=== PATIENT | male | born 1995 | race Caucasian/White ===

== ENCOUNTER 2017-04-22 16:10 | Emergency (ER) | payer OTHER ==
[~2017-04-22] VITALS: Ht 190.5 cm; Wt 65.0 kg
[2017-04-22 16:21] VITALS: BP 146/91; PULSE 66; RESP 18; TEMP 98; O2SAT 100
--- NOTE | 2017-04-22 17:01 | PD ---
HPI Chief Complaint: Fall Time Seen by Provider: 16:17 Travel History International Travel<30 days: No Contact w/Intl Traveler<30days: No Traveled to known affect area: No History of Present Illness HPI 21-year-old male presents to the ED for evaluation of laceration of the forehead , sustained "somewhere between 3 and 6 AM." Patient states that he was drinking last night. He states that he must have fallen during that time. He is unsure if he lost consciousness. He states that he walked home this morning and took a nap. On presentation he complains of pain over the left eye, right eye pain with ocular motion, pain in the middle finger of the left hand and pain in the right great toe. Pain is constant, throbbing. No alleviating or exacerbating factors reported. He denies headache, dizziness, vision changes, shortness of breath, nausea, vomiting. He endorses one-week history of pain in the left groin with associated numbness down the anterior aspect of the leg. He denies weakness or limitations to range of motion of the extremity. He denies dysuria, hematuria, penile discharge, genital ulcers. He is unsure of the date of his last tetanus immunization. No treatment attempted prior to arrival. He states that he sought treatment at the [facility] and was referred to the ED. [facility] Past Medical History Influenza Vaccination: Yes Past Surgical History Neurologic Surgery: Yes (SPINAL SURGERY) Tonsillectomy: Yes Social History Alcohol Use: Yes Tobacco Use: No Substance Use: No Allergies-Medications (Allergen,Severity, Reaction): Coded Allergies: No Known Allergies (Unverified , 04/22/17) Reported Meds & Prescriptions Reported Meds & Active Scripts Active Ibuprofen 800 Mg Tab 800 Mg PO Q8H PRN Keflex (Cephalexin) 500 Mg Cap 500 Mg PO Q6H 7 Days Bactrim DS (Sulfamethoxazole-Trimethoprim) 800-160 Mg Tab 1 Tab PO BID Review of Systems Except as stated in HPI: all other systems reviewed are Neg Physical Exam Narrative GENERAL: Well-nourished, well-developed white male in no acute distress. Sitting up the stretcher. Alert, oriented. SKIN: Warm and dry. 6 laceration superior to the left eyebrow. Galea is visible. Thorough evaluation reveals no edema, ecchymosis, abrasion, or laceration of the skin. HEAD: Normocephalic. No raccoon eyes or boykin sign. No tenderness to palpation of the skull. Positive tenderness to palpation of the facial bones, right greater than left. Swelling of the right cheek. No loose teeth. No movement of the alveolar ridge.. No bony step-offs. No malocclusion of the teeth. EYES: No scleral icterus. No injection or drainage. PERRLA. EOMI. ENT: Pearly vazquez tympanic membrane is bilaterally. Nasal mucosa is moist. Oropharynx without erythema, edema or exudate. NECK: Supple, trachea midline. No JVD or lymphadenopathy. No midline tenderness to palpation. Patient retains full, active, painless range of motion of the neck. CARDIOVASCULAR: Regular rate and rhythm without murmurs, gallops, or rubs. 2+ DP and radial pulses bilaterally. RESPIRATORY: Breath sounds clear and equal bilaterally. No accessory muscle use. GASTROINTESTINAL: Abdomen soft, non-tender, nondistended. + Bowel sounds GENITOURINARY: Circumcised. Testes descended bilaterally without evidence of rotation. No lesions or erythema. No urethral discharge. Ropy induration in the left groin suspicious for LAD. MUSCULOSKELETAL: No cyanosis, or edema. Bruising and tenderness to palpation of the middle finger of the left hand. Bruising and tenderness to palpation of the right great toe. Otherwise no tenderness to palpation or limitations to range of motion of the joints of the upper and lower extremities bilaterally. NEUROLOGICAL: Awake and alert. Cranial nerves II through XII intact. Motor and sensory grossly within normal limits. 5/5 muscle strength in all muscle groups. Normal speech. BACK: Nontender without obvious deformity. No CVA tenderness. No midline tenderness. Data Data Last Documented VS Vital Signs Date Time Temp Pulse Resp B/P (MAP) Pulse Ox O2 Delivery O2 Flow Rate FiO2 04/22/17 19:58 04/22/17 19:43 87 16 97 Room Air 04/22/17 16:21 98.0 Orders Orders Hand, Complete ([id number]) (04/22/17 16:36) Toe (Min 2vws) (04/22/17 16:36) Ct Facial Bones W/O Iv Cont (04/22/17 16:36) Tetanus/Diphtheria Tox Adult (Tetanus/Di (04/22/17 17:15) Lidocaine 1% Inj (50 Ml) (Xylocaine 1% I (04/22/17 17:15) Ibuprofen (Motrin) (04/22/17 17:15) Sulfamet-Trimeth Ds 800-160 Mg (Bactrim (04/22/17 19:00) Cephalexin (Keflex) (04/22/17 19:00) Ed Discharge Order (04/22/17 19:40) MDM Medical Decision Making Medical Screen Exam Complete: Yes Emergency Medical Condition: Yes Differential Diagnosis Laceration versus contusion versus facial fracture versus finger fracture versus patellar fracture versus date for tetanus immunization versus other Narrative Course 21-year-old male presents to the ED for evaluation of laceration of the forehead , sustained "somewhere between 3 and 6 AM." Patient states that he fell after drinking. Unsure if he lost consciousness. He walked home this morning and took a nap. On presentation he complains of pain over the left eye, right eye pain with ocular motion, pain in the middle finger of the left hand and pain in the right great toe. Complains of one-week history of pain in the left groin with associated numbness down the anterior aspect of the leg. He is unsure of the date of his last tetanus immunization. Patient is hypertensive on arrival. Physical exam reveals an alert white male in no acute distress. He has some swelling over the right side of his face and tenderness of the orbital bones. There is a 6 cm laceration above the left eyebrow. He also has some bruising and tenderness of the middle finger of the left hand in the great toe on the right foot. There is ropey induration in the left groin but the exam is otherwise unremarkable. Patient was administered Tylenol by mouth. Tetanus immunization was updated. Laceration repair was performed. Please see my procedure note for details. X-rays of the left hand and right foot unremarkable for bony injury. CT of the facial bones reveals multiple facial fractures including the right zygoma and maxilla. I discussed the case with Dr. Caballero, on-call maxillofacial surgeon, who recommends by mouth antibiotics and outpatient follow-up in the office early next week. I discussed this plan with the patient was agreeable. Patient is prescribed Bactrim, Keflex, ibuprofen. First doses were administered here in the ED. He was given detailed wound care instructions, instructed to follow up as discussed. We discussed reasons to return to the ED. He indicated understanding of the instructions and is agreeable to the care plan. The patient is stable and discharged home. Procedures Procedure Narrative LACERATION LOCATION: Above the left eyebrow LENGTH: 6 cm NUMBER OF STITCHES/ARLIN:2 deep, 9 superficial REPAIR: The area of the laceration was prepped with Betadine and sterilely draped. The laceration was infiltrated with 1% lidocaine. The wound was copiously irrigated and explored without evidence of foreign body, tendon injury or neurovascular injury. The wound was closed using 3-0 Vicryl and 4-0 Prolene. This was a 2 layer repair. A sterile dressing was applied. The patient was advised to keep the dressing clean and dry. Patient tolerated the procedure well. Diagnosis Primary Impression: Facial laceration Qualified Codes: S01.81XA - Laceration without foreign body of other part of head, initial encounter Additional Impressions: Contusion of middle finger Qualified Codes: S60.032A - Contusion of left middle finger without damage to nail, initial encounter Contusion of great toe of right foot Qualified Codes: S90.111A - Contusion of right great toe without damage to nail, initial encounter Inguinal lymphadenopathy Zygomatic fracture, right side, initial encounter for closed fracture Maxillary fracture Qualified Codes: S02.40CA - Maxillary fracture, right side, initial encounter for closed fracture Referrals: Ivan Tamez MD [facility] Patient Instructions: Care For Your Stitches (ED), Contusion in Adults (DC), General Instructions, Lymphadenopathy (ED) Additional Instructions: Rest, hydrate. Return to normal, gentle activity as tolerated. You may shower normally. Do not submerge your wound. (No swimming) Keep sutures clean, dry and covered. You may apply a thin layer of antibiotic ointment once a day if desired. Suture removal in 7-10 days. Continue to take antibiotics until every pill is gone. Follow up with Dr. Tamez tomorrow as discussed. Follow-up with the [facility]. Return to the ED for any urgent or emergent medical condition. Med/Other Pt SpecificInfo: Prescription(s) given Scripts Ibuprofen (Ibuprofen) 800 Mg Tab 800 MG PO Q8H Y for Pain/Inflammation, #15 TAB 0 Refills Prov: Geoffrey Mujica MD 04/22/17 Cephalexin (Keflex) 500 Mg Cap 500 MG PO Q6H for Infection for 7 Days, #28 CAP 0 Refills Prov: Geoffrey Mujica MD 04/22/17 Sulfamethoxazole-Trimethoprim (Bactrim DS) 800-160 Mg Tab 1 TAB PO BID for Infection, #14 TAB 0 Refills Prov: Geoffrey Mujica MD 04/22/17 Disposition: 01 DISCHARGE HOME Condition: Stable Chastity Fairchild Apr 22, 2017 17:01
[2017-04-22] MEDS ORDERED: TETANUS/DIPHTHERIA TOXOID ADULT 0.5 ML VIAL IM ONE (17:15)
[2017-04-22] MEDS ORDERED: IBUPROFEN 800 MG TAB PO ONE (17:15)
[2017-04-22] MEDS ORDERED: LIDOCAINE HCL 1% 50 ML VIAL INFIL ONE (17:15)
--- NOTE | 2017-04-22 17:24 | RADRPT ---
EXAM DATE/TIME: 04/22/2017 16:55 [facility] COMPARISON: No previous studies available for comparison. INDICATIONS : Left hand pain. 3rd and 4th digit swelling and bruising. Patient fell today. MEDICAL HISTORY : None. SURGICAL HISTORY : None. ENCOUNTER: Initial ACUITY: 2 days PAIN SCORE: 4/10 LOCATION: Left hand. FINDINGS: Three view examination of the left hand demonstrates no dislocation or fracture. Diffuse soft tissue swelling primarily about the proximal third and to a lesser extent fourth digits. The carpal bones ap pear intact. The interphalangeal and metacarpophalangeal joints are intact. Bony mineralization is normal. CONCLUSION: 1. No acute fracture or dislocation. 2. Mild soft tissue swelling primarily about the proximal third and to a lesser extent fourth digits. No radiopaque foreign bodies. Papito Olivares MD on April 22, 2017 at 17:22 Board Certified Radiologist. This report was verified electronically.
--- NOTE | 2017-04-22 17:27 | RADRPT ---
EXAM DATE/TIME: 04/22/2017 16:57 [facility] COMPARISON: No previous studies available for comparison. INDICATIONS : Left great toe swelling and bruising. Patient fell last night. MEDICAL HISTORY : None. SURGICAL HISTORY : None. ENCOUNTER: Initial ACUITY: 2 days PAIN SCORE: 5/10 LOCATION: Right great toe. FINDINGS: Examination of the first digit of the right foot demonstrates hallux no deformity of the first ray. C ortical margins are all intact with no acute fracture. CONCLUSION: 1. Hallux valgus deformity of the first ray. 2. No fracture. Snajay Kent MD on April 22, 2017 at 17:23 Board Certified Radiologist. This report was verified electronically.
[2017-04-22] MEDS ORDERED: IBUP1TAB7 PO (18:50)
[2017-04-22] MEDS ORDERED: BACT800T5 PO (18:50)
[2017-04-22] MEDS ORDERED: CEPH-460 PO (18:50)
--- NOTE | 2017-04-22 18:56 | RADRPT ---
EXAM DATE/TIME: 04/22/2017 18:19 [facility] COMPARISON: No previous studies available for comparison. INDICATIONS : Facial pain due to fall, cut on left upper orbit region. RADIATION DOSE: 33.69 CTDIvol (mGy) MEDICAL HISTORY : None SURGICAL HISTORY : Tonsillectomy. ENCOUNTER: Initial ACUITY: 2 days PAIN SCORE: 2/10 LOCATION: Left upper orbit region. TECHNIQUE: Volumetric scanning of the facial bones was performed. Using automated exposure control and adjustme nt of the mA and/or kV according to patient size, radiation dose was kept as low as reasonably achiev able to obtain optimal diagnostic quality images. DICOM format image data is available electronicall y for review and comparison. FINDINGS: ORBITS: The orbital and infraorbital osseous structures are intact. The retroconal structures have a normal configuration. No radiopaque foreign bodies are seen. NASAL BONE: The nasal bone and maxillary spine are intact ZYGOMATIC ARCHES: Slightly comminuted fracture of the right zygoma. SINUSES: There are slightly depressed fractures of the right anterio and lateral maxillary sewell as well as a subtle fracture of the medial maxillary wall with fluid noted in the right maxillary sinus. The anter ior fracture plane extends to the inferior orbital wall. Left maxillary sinus, ethmoid air cells and sphenoid sinuses are well-aerated and clear. Frontal sinuses are clear. NASAL CAVITY: The nasal septum is intact and midline. The lacrimal ducts are intact. SOFT TISSUES: Small left superior frontal periorbital soft tissue hematoma/laceration. No radiopaque foreign bodies . INTRACRANIAL: No intracranial air seen. CRIBIFORM PLATE: Grossly intact. CONCLUSION: 1. Slightly comminuted fracture the right zygoma. 2. Slightly depressed right anterior and lateral maxillary wall fractures with more subtle fracture o f the medial maxillary wall. Anterior fracture plane extends to the infraorbital wall. No evidence fo r ocular muscle entrapment or significant herniation. Right globe is grossly intact. Papito Olivares MD on April 22, 2017 at 18:39 Board Certified Radiologist. This report was verified electronically.
[2017-04-22] MEDS ORDERED: CEPHALEXIN MONOHYDRATE 500 MG CAP PO ONE (19:00)
[2017-04-22] MEDS ORDERED: SULFAMETHOXAZOLE-TRIMETHOPRIM DS 800-160 MG TAB PO ONE (19:00)
[2017-04-22 19:43] VITALS: BP 121/70; PULSE 87; RESP 16; O2SAT 97
== END 2017-04-22 20:08 | disposition home or self-care (01) ==
LOC: NEPC 16:10
DX: S02.40CA Maxillary fracture, right side, initial encounter for closed fracture (principal); S02.40EA Zygomatic fracture, right side, initial encounter for closed fracture; S01.81XA Laceration without foreign body of other part of head, initial encounter; S60.032A Contusion of left middle finger without damage to nail, initial encounter; S90.111A Contusion of right great toe without damage to nail, initial encounter; W19.XXXA Unspecified fall, initial encounter; Z23 Encounter for immunization
CPT/HCPCS: 12053; 70486; 73130; 73660; 90471; 90714

== ENCOUNTER 2017-08-26 16:32 | Observation (INO) | payer OTHER ==
[~2017-08-26] VITALS: Ht 190.5 cm; Wt 64.9 kg
[~2017-08-26 16:32] MED LIST: BACT800T5 PO; CEPH-460 PO; IBUP1TAB7 PO
[2017-08-26 16:39] VITALS: BP 141/79; PULSE 110; RESP 15; TEMP 98.2; O2SAT 100
[2017-08-26 16:45] VITALS: BP 141/79; PULSE 88; RESP 15; TEMP 98.2; O2SAT 100
[2017-08-26] MEDS ORDERED: ONDANSETRON HCL 4 MG/2 ML VIAL IV PUSH ONE (16:45)
[2017-08-26] MEDS ORDERED: SODIUM CHLOR 0.9% 1000 ML INJ 1,000 ML IV ONE (16:45)
--- NOTE | 2017-08-26 17:59 | PD ---
HPI Chief Complaint: Syncope/Near-Syncope Time Seen by Provider: 16:54 Travel History International Travel<30 days: No Contact w/Intl Traveler<30days: No Traveled to known affect area: No History of Present Illness HPI 21-year-old male states he has been feeling generally ill and having nonbloody emesis. He states he feels lightheaded when he stands up. He denies any other concurrent complaints. Triage staff states his heart was elevated in triage but in the room is now normal in sinus rhythm. Patient denies specific other modifying factors. Quality is generally ill. Severity is all over. He denies recurrent history of this. [facility] Past Medical History Medical History: Denies Significant Hx Diminished Hearing: No Past Surgical History Neurologic Surgery: Yes (SPINAL SURGERY/RODS PLACED) Tonsillectomy: Yes Social History Alcohol Use: Yes Tobacco Use: No Substance Use: No Allergies-Medications (Allergen,Severity, Reaction): Coded Allergies: No Known Allergies (Unverified , 08/26/17) Reported Meds & Prescriptions Reported Meds & Active Scripts Active Review of Systems Except as stated in HPI: all other systems reviewed are Neg Physical Exam Narrative GENERAL: 21-year-old male in no apparent distress SKIN: Focused skin assessment warm/dry. HEAD: Atraumatic. Normocephalic. EYES: Pupils equal and round. No scleral icterus. No injection or drainage. ENT: No nasal bleeding or discharge. Mucous membranes pink and moist. NECK: Trachea midline. No JVD. CARDIOVASCULAR: Regular rate and rhythm. RESPIRATORY: No accessory muscle use. Clear to auscultation. Breath sounds equal bilaterally. GASTROINTESTINAL: Abdomen soft, non-tender, nondistended. Hepatic and splenic margins not palpable. MUSCULOSKELETAL: No obvious deformities. No clubbing. No cyanosis. NEUROLOGICAL: Awake and alert. No obvious cranial nerve deficits. Motor grossly within normal limits. Normal speech. PSYCHIATRIC: Appropriate mood and affect; insight and judgment normal. Data Data Last Documented VS Vital Signs Date Time Temp Pulse Resp B/P (MAP) Pulse Ox O2 Delivery O2 Flow Rate FiO2 08/26/17 18:36 101 18 120/66 (84) 100 Room Air 08/26/17 16:45 98.2 Orders Orders Magnesium (Mg) (08/26/17 16:42) Phosphorus (Po4) (08/26/17 16:42) Complete Blood Count With Diff (08/26/17 16:42) Comprehensive Metabolic Panel (08/26/17 16:42) Iv Access Insert/Monitor (08/26/17 16:42) Ecg Monitoring (08/26/17 16:42) Oximetry (08/26/17 16:42) Sodium Chlor 0.9% 1000 Ml Inj (Ns 1000 M (08/26/17 16:45) Ondansetron Inj (Zofran Inj) (08/26/17 16:45) Drug Screen, Random Urine (08/26/17 16:42) Electrocardiogram (08/26/17 ) Red Blood Cells (Rbc) (08/26/17 18:29) Type And Screen (08/26/17 18:29) Pantoprazole Inj (Protonix Inj) (08/26/17 18:45) Admit Order (Ed Use Only) (08/26/17 19:17) Labs Laboratory Tests Test 08/26/17 16:55 08/26/17 18:30 White Blood Count 7.9 TH/MM3 Red Blood Count 2.49 MIL/MM3 Hemoglobin 8.4 GM/DL Hematocrit 23.4 % Mean Corpuscular Volume 93.9 FL Mean Corpuscular Hemoglobin 33.8 PG Mean Corpuscular Hemoglobin Concent 36.0 % Red Cell Distribution Width 12.7 % Platelet Count 239 TH/MM3 Mean Platelet Volume 8.9 FL Neutrophils (%) (Auto) 60.0 % Lymphocytes (%) (Auto) 31.7 % Monocytes (%) (Auto) 6.6 % Eosinophils (%) (Auto) 0.8 % Basophils (%) (Auto) 0.9 % Neutrophils # (Auto) 4.7 TH/MM3 Lymphocytes # (Auto) 2.5 TH/MM3 Monocytes # (Auto) 0.5 TH/MM3 Eosinophils # (Auto) 0.1 TH/MM3 Basophils # (Auto) 0.1 TH/MM3 CBC Comment AUTO DIFF Differential Comment AUTO DIFF CONFIRMED Blood Urea Nitrogen 27 MG/DL Creatinine 0.87 MG/DL Random Glucose 101 MG/DL Total Protein 6.0 GM/DL Albumin 3.8 GM/DL Calcium Level 8.7 MG/DL Phosphorus Level 2.6 MG/DL Magnesium Level 1.8 MG/DL Alkaline Phosphatase 50 U/L Aspartate Amino Transf (AST/SGOT) 29 U/L Alanine Aminotransferase (ALT/SGPT) 19 U/L Total Bilirubin 0.5 MG/DL Sodium Level 136 MEQ/L Potassium Level 3.7 MEQ/L Chloride Level 102 MEQ/L Carbon Dioxide Level 24.5 MEQ/L Anion Gap 10 MEQ/L Estimat Glomerular Filtration Rate 109 ML/MIN Urine Opiates Screen NEG Urine Barbiturates Screen NEG Urine Amphetamines Screen NEG Urine Benzodiazepines Screen NEG Urine Cocaine Screen NEG Urine Cannabinoids Screen NEG MDM Medical Decision Making Medical Screen Exam Complete: Yes Emergency Medical Condition: Yes Medical Record Reviewed: Yes (pmh confirmed) Interpretation(s) CBC & BMP Diagram 08/26/17 16:55 Total Protein 6.0 L, Albumin 3.8, Calcium Level 8.7, Phosphorus Level 2.6, Magnesium Level 1.8, Alkaline Phosphatase 50, Aspartate Amino Transf (AST/SGOT) 29, Alanine Aminotransferase (ALT/SGPT) 19, Total Bilirubin 0.5 Differential Diagnosis Electrolyte abnormality, gastroenteritis, dehydration, renal failure Narrative Course We will check blood work and dose with IV fluids and reevaluate. lab show anemia of 8. Patient notes black stools on review of systems. Patient refused rectal exam but is likely source of bleeding. He agrees to observation for further care. Given Protonix Physician Communication Physician Communication dr gonzales agrees to admit Diagnosis Primary Impression: Anemia Qualified Codes: D64.9 - Anemia, unspecified Additional Impression: Black stools Admitting Information Admitting Physician Requests: Observation Keily Holcomb MD August 26, 2017 17:59
[2017-08-26 18:04] LABS: AUTOMATED NEUTROPHIL # 4.7 TH/MM3 (1.8-7.7); BASOPHIL # 0.1 TH/MM3 (0-0.2); BASOPHIL % 0.9 % (0.0-2.0); EOSINOPHIL # 0.1 TH/MM3 (0-0.4); EOSINOPHIL % 0.8 % (0.0-4.0); HEMATOCRIT 23.4 % (39.0-51.0); HEMOGLOBIN 8.4 GM/DL (13.0-17.0); LYMPH % 31.7 % (9.0-44.0); LYMPHOCYTE # 2.5 TH/MM3 (1.0-4.8); MEAN CELL VOLUME 93.9 FL (80.0-100.0); MEAN CORPUSCULAR HEMOGLOBIN 33.8 PG (27.0-34.0); MEAN PLATELET VOLUME 8.9 FL (7.0-11.0); MONO % 6.6 % (0.0-8.0); MONOCYTE # 0.5 TH/MM3 (0-0.9); PLATELET COUNT 239 TH/MM3 (150-450); RED BLOOD COUNT 2.49 MIL/MM3 (4.50-5.90); RED CELL DISTRIBUTION WIDTH 12.7 % (11.6-17.2); WHITE BLOOD COUNT 7.9 TH/MM3 (4.0-11.0)
[2017-08-26 18:19] LABS: ALBUMIN 3.8 GM/DL (3.4-5.0); AST (GOT) 29 U/L (15-37); BICARBONATE 24.5 MEQ/L (21.0-32.0); BLOOD UREA NITROGEN 27 MG/DL (7-18); CALCIUM 8.7 MG/DL (8.5-10.1); CHLORIDE 102 MEQ/L (98-107); CREATININE 0.87 MG/DL (0.60-1.30); GLOMERULAR FILTRATION RATE 109 ML/MIN (>89); GLUCOSE,RANDOM 101 MG/DL (74-106); MAGNESIUM 1.8 MG/DL (1.5-2.5); SODIUM (NA) 136 MEQ/L (136-145)
[2017-08-26 18:21] LABS: ALT (GPT) 19 U/L (12-78); PHOSPHORUS 2.6 MG/DL (2.5-4.9)
[2017-08-26 18:23] LABS: ALKALINE PHOSPHATASE 50 U/L (45-117); TOTAL BILIRUBIN ADULT 0.5 MG/DL (0.2-1.0)
[2017-08-26 18:36] VITALS: BP 120/66; PULSE 101; RESP 18; O2SAT 100
[2017-08-26] MEDS ORDERED: PANTOPRAZOLE SODIUM 40 MG VIAL IV PUSH ONE (18:45)
[2017-08-26] MEDS ORDERED: ONDANSETRON HCL 4 MG/2 ML VIAL IV PUSH PRN (20:30)
[2017-08-26] MEDS ORDERED: SODIUM CHLORIDE 0.9% FLUSH 10 ML FLUSH IV FLUSH PRN (20:30)
[2017-08-26] MEDS: SODIUM CHLORIDE 0.9% FLUSH 10 ML FLUSH IV FLUSH SCH (20:51)
[2017-08-26] MEDS: SODIUM CHLOR 0.9% 1000 ML INJ 1,000 ML IV SCH (20:55)
[2017-08-26 21:24] VITALS: BP 125/81; PULSE 88; RESP 16; TEMP 98.6; O2SAT 100
--- NOTE | 2017-08-26 22:02 | HHI.HP ---
[facility] Unknown Admission Diagnosis anemia, black stools Diagnoses: Travel History International Travel<30 Days: No Contact w/Intl Traveler <30 Da: No Traveled to Known Affected Are: No History of Present Illness 21-year-old male presents to the emergency department for the evaluation of generalized malaise and nonbloody emesis. He complains of lightheadedness upon standing/walking. He was tachycardic on his arrival. Anemia and Hemoccult- positive in the emergency department. He denies any abdominal pain. Positive nausea. No diarrhea. Positive black stools. No fevers/chills. No chest pain or shortness of breath. No lateralizing signs/symptoms. Review of Systems Except as stated in HPI: all other systems reviewed are Neg Past Family Social History Past Medical History Depression Past Surgical History Tonsillectomy Back surgery Reported Medications Reported Meds & Active Scripts Active Allergies: Coded Allergies: No Known Allergies (Unverified , 08/26/17) Family History Negative for CAD/DM Social History Occasional alcohol. Negative for tobacco, illegal drugs. Physical Exam Vital Signs Vital Signs Date Time Temp Pulse Resp B/P (MAP) Pulse Ox O2 Delivery O2 Flow Rate FiO2 08/26/17 21:24 98.6 88 16 125/81 (96) 100 08/26/17 18:36 101 18 120/66 (84) 100 Room Air 08/26/17 16:45 98.2 88 15 141/79 (99) 100 Room Air 08/26/17 16:43 100 Room Air 08/26/17 16:39 98.2 110 15 141/79 (99) 100 Physical Exam GENERAL: Thin, male lying in bed SKIN: No rashes, ecchymoses or lesions. Cool and dry. HEAD: Atraumatic. Normocephalic. No temporal or scalp tenderness. EYES: Pupils equal round and reactive. Extraocular motions intact. No scleral icterus. No injection or drainage. ENT: Nose without bleeding, purulent drainage or septal hematoma. Throat without erythema, tonsillar hypertrophy or exudate. Uvula midline. Airway patent. NECK: Trachea midline. No JVD or lymphadenopathy. Supple, nontender, no meningeal signs. CARDIOVASCULAR: Regular rate and rhythm without murmurs, gallops, or rubs. RESPIRATORY: Clear to auscultation. Breath sounds equal bilaterally. No wheezes , rales, or rhonchi. GASTROINTESTINAL: Abdomen soft, non-tender, nondistended. No hepato-splenomegaly , or palpable masses. No guarding. Rectal: Rectal vault positive for dark stools. Hemoccult positive. MUSCULOSKELETAL: Extremities without clubbing, cyanosis, or edema. No joint tenderness, effusion, or edema noted. No calf tenderness. NEUROLOGICAL: Awake and alert. Cranial nerves II through XII intact. Motor and sensory grossly within normal limits. Normal speech. Laboratory Laboratory Tests Test 08/26/17 16:55 08/26/17 18:30 White Blood Count 7.9 Red Blood Count 2.49 Hemoglobin 8.4 Hematocrit 23.4 Mean Corpuscular Volume 93.9 Mean Corpuscular Hemoglobin 33.8 Mean Corpuscular Hemoglobin Concent 36.0 Red Cell Distribution Width 12.7 Platelet Count 239 Mean Platelet Volume 8.9 Neutrophils (%) (Auto) 60.0 Lymphocytes (%) (Auto) 31.7 Monocytes (%) (Auto) 6.6 Eosinophils (%) (Auto) 0.8 Basophils (%) (Auto) 0.9 Neutrophils # (Auto) 4.7 Lymphocytes # (Auto) 2.5 Monocytes # (Auto) 0.5 Eosinophils # (Auto) 0.1 Basophils # (Auto) 0.1 CBC Comment AUTO DIFF Differential Comment AUTO DIFF CONFIRMED Blood Urea Nitrogen 27 Creatinine 0.87 Random Glucose 101 Total Protein 6.0 Albumin 3.8 Calcium Level 8.7 Phosphorus Level 2.6 Magnesium Level 1.8 Alkaline Phosphatase 50 Aspartate Amino Transf (AST/SGOT) 29 Alanine Aminotransferase (ALT/SGPT) 19 Total Bilirubin 0.5 Sodium Level 136 Potassium Level 3.7 Chloride Level 102 Carbon Dioxide Level 24.5 Anion Gap 10 Estimat Glomerular Filtration Rate 109 Urine Opiates Screen NEG Urine Barbiturates Screen NEG Urine Amphetamines Screen NEG Urine Benzodiazepines Screen NEG Urine Cocaine Screen NEG Urine Cannabinoids Screen NEG Result Diagram: 08/26/17 1655 08/26/171654 Caprini VTE Risk Assessment Caprini VTE Risk Assessment: No/Low Risk (score <= 1) Caprini Risk Assessment Model Point Value = 1 Point Value = 2 Point Value = 3 Point Value = 5 Age 41-60 Minor surgery BMI > 25 kg/m2 Swollen legs Varicose veins or History of unexplained or recurrent spontaneous Oral contraceptives or hormone replacement Sepsis (< 1 month) Serious lung disease, including pneumonia (< 1 month) Abnormal pulmonary function Acute myocardial infarction Congestive heart failure (< 1 month) History of inflammatory bowel disease Medical patient at bed rest Age 61-74 Arthroscopic surgery Major open surgery (> 45 min) Laparoscopic surgery (> 45 min) Malignancy Confined to bed (> 72 hours) Immobilizing plaster cast Central venous access Age >= 75 History of VTE Family history of VTE Factor V Leiden Prothrombin [id number] Lupus anticoagulant Anticardiolipin antibodies Elevated serum homocysteine Heparin-induced thrombocytopenia Other congenital or acquired thrombophilia Stroke (< 1 month) Elective arthroplasty Hip, pelvis, or leg fracture Acute spinal cord injury (< 1 month) Prophylaxis Regimen Total Risk Factor Score Risk Level Prophylaxis Regimen 0-1 Low Early ambulation 2 Moderate Order ONE of the following: *Sequential Compression Device (SCD) *Heparin 5000 units SQ BID 3-4 Higher Order ONE of the following medications: *Heparin 5000 units SQ TID *Enoxaparin/Lovenox 40 mg SQ daily (WT < 150 kg, CrCl > 30 mL/min) *Enoxaparin/Lovenox 30 mg SQ daily (WT < 150 kg, CrCl > 10-29 mL/min) *Enoxaparin/Lovenox 30 mg SQ BID (WT < 150 kg, CrCl > 30 mL/min) AND/OR *Sequential Compression Device (SCD) 5 or more Highest Order ONE of the following medications: *Heparin 5000 units SQ TID (Preferred with Epidurals) *Enoxaparin/Lovenox 40 mg SQ daily (WT < 150 kg, CrCl > 30 mL/min) *Enoxaparin/Lovenox 30 mg SQ daily (WT < 150 kg, CrCl > 10-29 mL/min) *Enoxaparin/Lovenox 30 mg SQ BID (WT < 150 kg, CrCl > 30 mL/min) AND *Sequential Compression Device (SCD) Assessment and Plan Assessment and Plan Assessment/plan: 1. Lower GI bleed/symptomatic anemia Hemoccult positive with dark stools H&H 8.4/23.4 Gastroenterology consulted, appreciate assistance Serial H&H Transfuse as needed Type and screen Protonix IV 2. Depression Continue home medications once reconciled FEN N.p.o. NS at 70 cc/hour Electrolytes: Monitor and replete as needed Jeri Aquino MD August 26, 2017 22:02
[2017-08-26 23:09] LABS: HEMOGLOBIN 7.1 GM/DL (13.0-17.0)
[2017-08-26 23:14] LABS: HEMATOCRIT 19.5 % (39.0-51.0)
[2017-08-27] VITALS (8 sets, daily range): BP systolic 107–148; BP diastolic 56–78; PULSE 71–86; RESP 16–18; TEMP 97.6–98.8; O2SAT 98–100
[2017-08-27] MEDS ORDERED: SODIUM CHLOR 0.9% 250 ML INJ 250 ML IV ONE (00:15)
[2017-08-27 04:15] LABS: AUTOMATED NEUTROPHIL # 2.2 TH/MM3 (1.8-7.7); BASOPHIL % 1.2 % (0.0-2.0); EOSINOPHIL # 0.1 TH/MM3 (0-0.4); EOSINOPHIL % 2.4 % (0.0-4.0); HEMOGLOBIN 7.5 GM/DL (13.0-17.0); LYMPH % 35.4 % (9.0-44.0); LYMPHOCYTE # 1.4 TH/MM3 (1.0-4.8); MEAN CELL VOLUME 87.9 FL (80.0-100.0); MEAN CORPUSCULAR HEMOGLOBIN 31.5 PG (27.0-34.0); MEAN CORPUSCULAR HGB CONC 35.8 % (32.0-36.0); MEAN PLATELET VOLUME 7.9 FL (7.0-11.0); MONO % 6.7 % (0.0-8.0); MONOCYTE # 0.3 TH/MM3 (0-0.9); NEUT % 54.3 % (16.0-70.0); PLATELET COUNT 165 TH/MM3 (150-450); RED BLOOD COUNT 2.39 MIL/MM3 (4.50-5.90); RED CELL DISTRIBUTION WIDTH 18.8 % (11.6-17.2)
[2017-08-27 04:46] LABS: BICARBONATE 26.1 MEQ/L (21.0-32.0); CALCIUM 8.1 MG/DL (8.5-10.1); CREATININE 0.8 MG/DL (0.60-1.30)
[2017-08-27] MEDS ORDERED: PANTOPRAZOLE SODIUM 40 MG VIAL IV PUSH SCH (06:00)
[2017-08-27] MEDS ORDERED: LACTATED RINGER'S 1000 ML IV PRN (07:45)
[2017-08-27] MEDS ORDERED: POVIDONE IODINE 5% (ANTISEPSIS KIT) 4 APPLICATIONS EACH NARE PRN (07:45)
[2017-08-27] MEDS ORDERED: METOPROLOL TARTRATE 25 MG TAB PO PRN (07:45)
[2017-08-27] MEDS ORDERED: SODIUM CHLORID 0.9% 500 ML IV PRN (07:45)
[2017-08-27] MEDS ORDERED: CHLORHEXIDINE GLUCONATE 2 % 1 PACK (2 CLOTHS) TOPICAL PRN (07:45)
[2017-08-27] MEDS: SODIUM CHLORIDE 0.9% FLUSH 10 ML FLUSH IV FLUSH SCH (09:00)
--- NOTE | 2017-08-27 09:27 | PD.CONS ---
HPI History of Present Illness This is a 21 year old yo healthy male who presented to the ER yesterday with complaints of nausea, vomiting, and black stools. Pt states two episodes of vomiting yesterday with some coffee ground material. Denies any continued nausea. States black stools have been going on for three days, couple stools a day. Denies abdominal pain, acid reflux, heartburn. ETOH, 6 pack of beer a week. Denies smoking, taking NSAIDs frequently, blood thinners, history of GIB, history of anemia. Has never had EGD or colonoscopy before. H/H currently 7.5 S/P 1 U PRBCs. (Melissa Aj) PFSH Past Medical History Depression Past Surgical History Tonsillectomy Back surgery (Melissa Aj) Coded Allergies: No Known Allergies (Unverified , 08/26/17) Family History Negative for CAD/DM Social History ETOH- 6 pack of beer a day Denies nicotine use and illicit drug use (Melissa Aj) Review of Systems Gastrointestinal: COMPLAINS OF: Black stools, Nausea, Vomiting, Hematemesis, DENIES: Abdominal pain, Bloody stools, Constipation, Diarrhea, Difficulty Swallowing, Anorexia, Odynophagia, Swelling of Abdomen, Heartburn (Melissa Aj) GI Exam Vitals I&O Vital Signs Date Time Temp Pulse Resp B/P (MAP) Pulse Ox O2 Delivery O2 Flow Rate FiO2 08/27/17 08:20 97.8 71 18 111/57 (75) 100 08/27/17 03:44 97.8 72 16 107/56 (73) 99 08/27/17 02:55 97.6 86 18 143/72 98 08/27/17 01:49 97.8 80 18 145/78 98 08/27/17 01:21 97.9 80 18 135/76 98 08/27/17 01:13 98.8 78 18 148/69 08/27/17 00:00 98.6 84 16 114/68 (83) 100 08/26/17 21:24 98.6 88 16 125/81 (96) 100 08/26/17 18:36 101 18 120/66 (84) 100 Room Air 08/26/17 16:45 98.2 88 15 141/79 (99) 100 Room Air 08/26/17 16:43 100 Room Air 08/26/17 16:39 98.2 110 15 141/79 (99) 100 I/O 08/26/17 08/26/17 08/26/17 08/27/17 08/27/17 08/27/17 07:00 15:00 23:00 07:00 15:00 23:00 Intake Total 1000 ml 1250 ml Output Total 400 ml Balance 1000 ml 1250 ml -400 ml Intake Oral 200 ml IV Total 1000 ml Packed Cells 400 ml Blood Product IV Normal Saline Flush 650 ml Output Urine Total 400 ml Laboratory Test 08/26/17 16:55 08/26/17 18:30 08/26/17 22:49 08/27/17 04:03 White Blood Count 7.9 TH/MM3 4.0 TH/MM3 Red Blood Count 2.49 MIL/MM3 2.39 MIL/MM3 Hemoglobin 8.4 GM/DL 7.1 GM/DL 7.5 GM/DL Hematocrit 23.4 % 19.5 % 21.0 % Mean Corpuscular Volume 93.9 FL 87.9 FL Mean Corpuscular Hemoglobin 33.8 PG 31.5 PG Mean Corpuscular Hemoglobin Concent 36.0 % 35.8 % Red Cell Distribution Width 12.7 % 18.8 % Platelet Count 239 TH/MM3 165 TH/MM3 Mean Platelet Volume 8.9 FL 7.9 FL Neutrophils (%) (Auto) 60.0 % 54.3 % Lymphocytes (%) (Auto) 31.7 % 35.4 % Monocytes (%) (Auto) 6.6 % 6.7 % Eosinophils (%) (Auto) 0.8 % 2.4 % Basophils (%) (Auto) 0.9 % 1.2 % Neutrophils # (Auto) 4.7 TH/MM3 2.2 TH/MM3 Lymphocytes # (Auto) 2.5 TH/MM3 1.4 TH/MM3 Monocytes # (Auto) 0.5 TH/MM3 0.3 TH/MM3 Eosinophils # (Auto) 0.1 TH/MM3 0.1 TH/MM3 Basophils # (Auto) 0.1 TH/MM3 0.0 TH/MM3 CBC Comment AUTO DIFF AUTO DIFF Differential Comment AUTO DIFF CONFIRMED AUTO DIFF CONFIRMED Blood Urea Nitrogen 27 MG/DL 17 MG/DL Creatinine 0.87 MG/DL 0.80 MG/DL Random Glucose 101 MG/DL 81 MG/DL Total Protein 6.0 GM/DL Albumin 3.8 GM/DL Calcium Level 8.7 MG/DL 8.1 MG/DL Phosphorus Level 2.6 MG/DL Magnesium Level 1.8 MG/DL Alkaline Phosphatase 50 U/L Aspartate Amino Transf (AST/SGOT) 29 U/L Alanine Aminotransferase (ALT/SGPT) 19 U/L Total Bilirubin 0.5 MG/DL Sodium Level 136 MEQ/L 141 MEQ/L Potassium Level 3.7 MEQ/L 4.0 MEQ/L Chloride Level 102 MEQ/L 108 MEQ/L Carbon Dioxide Level 24.5 MEQ/L 26.1 MEQ/L Anion Gap 10 MEQ/L 7 MEQ/L Estimat Glomerular Filtration Rate 109 ML/MIN 120 ML/MIN Urine Opiates Screen NEG Urine Barbiturates Screen NEG Urine Amphetamines Screen NEG Urine Benzodiazepines Screen NEG Urine Cocaine Screen NEG Urine Cannabinoids Screen NEG Physical Examination HEENT: Normocephalic; atraumatic CHEST: Even/unlabored CARDIAC: RRR ABDOMEN: Soft, nondistended, nontender; bowel sounds active EXTREMITIES: No clubbing, cyanosis, or edema. SKIN: Normal; no rash; no jaundice. MAIL INSERTER: No focal deficits; alert and oriented times three. (Melissa Aj) Assessment and Plan Plan Assessment: - Anemia with reports of melena and coffee ground emesis- H/H currently 7.5/21 S /P 1 U PRBCs. Coffee ground emesis x 2, denies continued nausea or emesis today. Black stools x 3 days Hemoccult positive. Denies abdominal pain, acid reflux, heartburn. Pt denies NSAIDs, smoking, history of GIB, history of anemia, blood thinners. Has never had EGD or colonoscopy. Plan EGD today Obtain consent Keep NPO Protonix gtt Monitor H/H Transfuse as needed Further recommendations based on findings of above Pt has been seen and examined by myself and Dr. Garcia and this note is written on his behalf (Melissa Aj) Plan Patient was seen and examined, agree with above note, plan on upper endoscopy today to rule out peptic ulcer disease (Kip Garcia MD) Melissa Aj August 27, 2017 09:26 Kip Garcia MD August 27, 2017 12:11
[2017-08-27] MEDS: SODIUM CHLOR 0.9% 1000 ML INJ 1,000 ML IV SCH (10:33)
[2017-08-27] MEDS ORDERED: PANTOPRAZOLE INJ 80 MG in SODIUM CHLORIDE 0.9% INJ 100 ML IV SCH (11:00)
[2017-08-27] MEDS ORDERED: PROPOFOL 200 MG/20 ML AMP IV ONE (12:00)
[2017-08-27] MEDS ORDERED: LIDOCAINE HCL 1% PF 5 ML SYRINGE OTHER ONE (12:00)
--- NOTE | 2017-08-27 12:15 | PD.PROCEDR ---
GI Procedure PROCEDURE PERFORMED Upper endoscopy with biopsy INDICATION FOR PROCEDURE Black stool, nausea vomiting PROCEDURE: The procedure, risks and benefits were discussed with Mr. Hernandez and informed consent was obtained. Anesthesia sedated him with Diprivan. He was placed in the left lateral decubitus position. EGD: The Pentax videoscope was introduced through the oropharynx and advanced to the second portion of the duodenum under direct visualization. Retroflexion was performed in the stomach. Biopsy from the antrum to rule out H. pylori, biopsy from the EG junction for esophagitis ESTIMATED BLOOD LOSS: None SPECIMENS REMOVED: Distal esophagus, antrum COMPLICATIONS: None IMPRESSION: Mild grade B esophagitis biopsy was done from the EG junction Multiple deep large duodenal ulcers 3 in the pyloric channel bulb and first portion, biopsy from the antrum to rule out H. pylori Stomach normal PLAN: No NSAIDs Protonix 40 mg daily Gastrin level Follow-up biopsy Diet as tolerated Kip Garcia MD August 27, 2017 12:14
[2017-08-27 12:51] LABS: HEMATOCRIT 22.7 % (39.0-51.0); HEMOGLOBIN 7.9 GM/DL (13.0-17.0)
[2017-08-27] MEDS ORDERED: PROT40TA PO (13:38)
--- NOTE | 2017-08-27 14:04 | EKG ---
Date Performed: 08/26/2017 Time Performed: 16:43:28 PTAGE: 21 years EKG: Sinus rhythm NORMAL ECG NO PREVIOUS TRACING DOCTOR: Jeannette Morales Interpretating Date/Time 08/27/2017 13:59:28
--- NOTE | 2017-08-27 16:02 | HHI.DS ---
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 pylori Stomach normal Brief History - From Admission 21-year-old male presents to the emergency department for the evaluation of generalized malaise and nonbloody emesis. He complains of lightheadedness upon standing/walking. He was tachycardic on his arrival. Anemia and Hemoccult- positive in the emergency department. He denies any abdominal pain. Positive nausea. No diarrhea. Positive black stools. No fevers/chills. No chest pain or shortness of breath. No lateralizing signs/symptoms. CBC/BMP: 08/27/17 1233 08/27/17 0403 Significant Findings Laboratory Tests Test 08/26/17 16:55 08/26/17 18:30 08/26/17 22:49 08/27/17 04:03 Red Blood Count 2.49 MIL/MM3 (4.50-5.90) 2.39 MIL/MM3 (4.50-5.90) Hemoglobin 8.4 GM/DL (13.0-17.0) 7.1 GM/DL (13.0-17.0) 7.5 GM/DL (13.0-17.0) Hematocrit 23.4 % (39.0-51.0) 19.5 % (39.0-51.0) 21.0 % (39.0-51.0) Blood Urea Nitrogen 27 MG/DL (7-18) Total Protein 6.0 GM/DL (6.4-8.2) Red Cell Distribution Width 18.8 % (11.6-17.2) Calcium Level 8.1 MG/DL (8.5-10.1) Chloride Level 108 MEQ/L (98-107) Test 08/27/17 12:33 Hemoglobin 7.9 GM/DL (13.0-17.0) Hematocrit 22.7 % (39.0-51.0) PE at Discharge GENERAL: Alert, Oriented x 3, NAD. SKIN: Warm and dry. HEAD: Normocephalic. EYES: No scleral icterus. No injection or drainage. NECK: Supple, trachea midline. No JVD or lymphadenopathy. CARDIOVASCULAR: Regular rate and rhythm without murmurs, gallops, or rubs. RESPIRATORY: Breath sounds equal bilaterally. No accessory muscle use. GASTROINTESTINAL: Abdomen soft, non-tender, nondistended. MUSCULOSKELETAL: No cyanosis, or edema. BACK: Nontender without obvious deformity. No CVA tenderness. Pt update on day of discharge Patient is currently doing well. Denies any chest pain, shortness of breath, fever or chills. Tolerating diet well. Hospital Course Mr. Hernandez is a pleasant 21-year-old who presented to the emergency department due to lightheadedness and dizziness, nonbloody emesis. He was found to have anemia and Hemoccult-positive. Patient underwent EGD on 2017. EGD shows multiple deep large duodenal ulcers. GI recommended Protonix 40 mg daily. Patient is highly encouraged to follow-up with GI or at least PCP with regards to biopsy. Patient was advised that if biopsy shows H. pylori infection he will require medications to eradicate H. pylori. He can follow-up with GI Dr. Garcia or [facility] if [facility] to [facility] physicians. Patient verbalized understanding. Patient was also advised not to take any aspirin, ibuprofen, naproxen or any other NSAIDs. Pt Condition on Discharge: Good Discharge Disposition: Discharge Home Discharge Time: <= 30 minutes Discharge Instructions DIET: Follow Instructions for: As Tolerated, No Restrictions Activities you can perform: Regular-No Restrictions Follow up Referrals: Gastroenterology - 1 Week with Kip Garcia MD PCP Follow-up - 1 Week New Medications: Pantoprazole (Protonix) 40 Mg Tab 40 MG PO DAILY for Reflux, #30 TAB 11 Refills Brielle Vásquez DO August 27, 2017 4:02 pm
== END 2017-08-27 14:58 | disposition home or self-care (01) ==
LOC: NEPC 16:32 → NEDA 19:18 → NEPHCDU 21:08
PROVIDERS: ADMIT Hospitalist; ATTEND Hospitalist
DX: D50.0 Iron deficiency anemia secondary to blood loss (chronic) (principal); K26.9 Duodenal ulcer, unspecified as acute or chronic, without hemorrhage or perforation; K20.9 Esophagitis, unspecified; F32.9 Major depressive disorder, single episode, unspecified
CPT/HCPCS: 00731; 36430; 43239; 80048; 80053; 80307; 82941; 83735; 84100; 85014; 85018; 85025; 86850; 86900; 86901; 86920; 88305; 93005; 96361; 96365; 96375; 96376; 99285; C9113; G0378; J2405; J7030; P9016